=== PATIENT | female | born 1995 | race Caucasian/White ===

== ENCOUNTER 2016-09-02 17:29 | Emergency (ER) | payer MEDICAID ==
[~2016-09-02 17:29] MED LIST: DOXY10TA; DOXY10TA PO; PYRI1TAB5; UNIS25TA2 PO; ZOFR4TAB PO; ZOFR4TAB3 SL
--- NOTE | 2016-09-02 18:03 | PD ---
HPI Chief Complaint abdominal pain Date Seen: Sep 02, 2016 (Veronika Silvestre MD R2) Travel History International Travel<30 Days: No Contact w/Intl Traveler<30Days: No (Veronika Silvestre MD R2) History of Present Illness HPI Patient is a 20 year old at 18-3/7 weeks gestation who presents today with abdominal pain. The pain started yesterday afternoon, went away last night while she was sleeping, and returned this morning when she woke up. The pain is located in the RUQ and radiates down to the central lower abdomen. She describes the pain as sharp. She denies any vaginal bleeding or discharge, hematuria, dysuria, fever, chills, nausea, or vomiting. Last intercourse was 2 days [address] care [address] Dr[address] Nick Regalado. (Veronika Silvestre MD R2) History Past Medical History Medical History: Denies Significant Hx (Veronika Silvestre MD R2) Obstetric History Obstetric History (Veronika Silvestre MD R2) Past Surgical History Surgical History: No Previous Surgery (Veronika Silvestre MD R2) Family History Family History: Negative (Veronika Silvestre MD R2) Social History Alcohol Use: No Tobacco Use: No Substance Abuse: No (Veronika Silvestre MD R2) Allergies-Medications (Allergen,Severity, Reaction): Coded Allergies: Penicillin (Verified Allergy, Severe, Anaphylaxis, 08/05/16) Pistachio (Verified Allergy, Severe, anaphylaxis, 08/05/16) [place] (Verified Allergy, Severe, anaphylaxis, 08/05/16) Home Meds Active Scripts Ferrous Sulfate (Iron)325 Mg [id number] Mg PO BIDPC #60 TAB Ref 3 Take after a meal. Prov:Veronika Silvestre MD R2 09/02/16 Ondansetron Odt (Zofran Odt)4 Mg Tab4 Mg SL Q8HR PRN (Nausea/Vomiting) #15 TAB May substitute non-ODT form. Prov:Zechariah Olmedo MD 08/14/16 Doxylamine-Pyridoxine (Diclegis)10-10 Mg Tab1 Tab PO DIRECTED PRN (NAUSEA OR VOMITING) #14 TAB Prov:Lidia Regalado MD, R3 11/29/16 Reported Medications Doxylamine Succinate (Sleep) (Unisom)25 Mg Tab25 Mg PO HS PRN (INSOMNIA) 07/22/16 Pyridoxine (B6 Natural)100 Mg Tab 07/22/16 Ondansetron (Zofran)4 Mg Tab4 Mg PO Q12HR PRN (NAUSEA OR VOMITING) Ref 0 07/22/16 Doxylamine-Pyridoxine (Diclegis)10-10 Mg Tab 07/22/16 Review of Systems Except as stated in HPI: all other systems reviewed are Neg General / Constitutional: No: Fever, Chills Eyes: No: Blurred Vision, Visual changes HENT: No: Headaches Cardiovascular: No: Chest Pain or Discomfort Respiratory: No: Short of Breath Gastrointestinal: Abdominal Pain, No: Nausea, Vomiting Genitourinary: No: Dysuria, Hematuria, Discharge, Vaginal Bleeding Musculoskeletal: No: Edema Skin: No Rash Psychiatric: No: Substance Abuse (Veronika Silvestre MD R2) Physical Exam Narrative GENERAL: Well-nourished, well-developed patient. SKIN: Warm and dry. HEAD: Normocephalic and atraumatic. EYES: No scleral icterus. No injection or drainage. ENT: No nasal drainage noted. Mucous membranes pink. Airway patent. NECK: Supple, trachea midline. No JVD. CARDIOVASCULAR: Regular rate and rhythm without murmurs, gallops, or rubs. RESPIRATORY: Breath sounds equal bilaterally. No accessory muscle use. ABDOMEN/GI: Abdomen soft, tender to palpation in RUQ, positive Brower's sign, bowel sounds present, no rebound, no guarding Gravid to 18 weeks size Fundal Height: 18 GENITOURINARY: External Genitalia: intact and normal in appearance FHT's: 150's EXTREMITIES: No cyanosis or edema. BACK: Nontender without obvious deformity. No CVA tenderness. NEUROLOGICAL: Awake and alert. Motor and sensory grossly within normal limits. Normal speech. (Veronika Silvestre MD R2) Data Data Vital Signs Reviewed: Yes Orders Vital Signs (Adult) .ON ADMISSION (09/02/16 17:55) ^ Labor Status (09/02/16 17:55) Urinalysis - C+S If Indicated (09/02/16 17:55) ^ Hydration (09/02/16 17:55) (Veronika Silvestre MD R2) [facility] Medical Record Reviewed: Yes Narrative Course / MDM Patient is a 20 year old at 18-3/7 weeks gestation. 1. Abdominal pain- ddx includes UTI vs cholelithiasis vs cholecystitis vs round ligament pain Obtain UA, CBC, CMP dw Dr. Lopez Addendum: UA wnl CBC significant for H/H 10.6/30.7, no leukocytosis. Will start on Ferrous Sulfate 325mg PO BID. CMP wnl Discharge home. Follow up with Dr. Regalado at the [facility]. (Veronika Silvestre MD R2) Diagnosis Diagnosis: Primary Impression: Round ligament pain Additional Impression: Qualified Code: Z3A.18 - 18 weeks gestation of Disposition: DISCHARGE HOME Condition: Stable Scripts Ferrous Sulfate (Iron)325 Mg [id number] Mg PO BIDPC #60 TAB Ref 3 Take after a meal. Prov:Veronika Silvestre MD R2 09/02/16 Attestation Patient seen and examined with the resident under direct supervision, I agree with the assessment and plan. (Clif Lopez MD) Veronika Silvestre MD R2 Sep 02, 2016 18:03 Clif Lopze MD Sep 02, 2016 22:51
[2016-09-02 18:26] LABS: BLOOD, URINE NEG (NEG); COMMENT (UR) CULT NOT INDICATED; CULTURE IF INDICATED CULT NOT INDICATED; GLUCOSE,URINE NEG (NEG); KETONE, URINE NEG (NEG); MUCUS URINE FEW /lpf (OCC); NITRITE,URINE NEG (NEG); SQUAMOUS EPITHELIAL CELL URINE <1 /hpf (0-5); URINE COLOR YELLOW (YELLW/STRAW)
[2016-09-02 18:31] LABS: HEMATOCRIT 30.7 % (35.0-46.0); MEAN CELL VOLUME 87.2 FL (80.0-100.0); MEAN CORPUSCULAR HEMOGLOBIN 30.1 PG (27.0-34.0); MEAN CORPUSCULAR HGB CONC 34.5 % (32.0-36.0); PLATELET COUNT 240 TH/MM3 (150-450); RED BLOOD COUNT 3.52 MIL/MM3 (4.00-5.30); RED CELL DISTRIBUTION WIDTH 13.1 % (11.6-17.2); REVIEW FLAG FINAL; WHITE BLOOD COUNT 9.2 TH/MM3 (4.0-11.0)
[2016-09-02] MEDS ORDERED: FERR1TAB36 PO (18:46)
[2016-09-02 18:47] LABS: ALT (GPT) 14 U/L (10-53); ANION GAP 7 MEQ/L (5-15); AST (GOT) 7 U/L (15-37); BICARBONATE 26.5 MEQ/L (21.0-32.0); BLOOD UREA NITROGEN 6 MG/DL (7-18); CHLORIDE 105 MEQ/L (98-107); GLOMERULAR FILTRATION RATE 159 ML/MIN (>89); POTASSIUM 3.9 MEQ/L (3.5-5.1); SODIUM (NA) 138 MEQ/L (136-145)
[2016-09-02 18:50] LABS: ALKALINE PHOSPHATASE 57 U/L (45-117); TOTAL BILIRUBIN ADULT 0.1 MG/DL (0.2-1.0)
[2016-10-01] MEDS ORDERED: COMPCHW PO (16:40)
[2016-10-14] MEDS ORDERED: FERR1TAB36 PO (10:50)
[2016-10-14] MEDS ORDERED: ZOFR4TAB3 SL (10:51)
== END 2016-09-02 19:29 | disposition home or self-care (01) ==
LOC: HOBED 17:29
DX: O26.892 Other specified pregnancy related conditions, second trimester (principal); R10.2 Pelvic and perineal pain; Z3A.18 18 weeks gestation of pregnancy
CPT/HCPCS: 36415; 80053; 81001; 85027

== ENCOUNTER → 2016-09-04 | Outpatient (CLI) | payer MEDICAID ==
[~2016-09-04] MED LIST changes: +COMPCHW PO; +FERR1TAB36 PO
== END ==
LOC: HPND 08:06
PROVIDERS: ATTEND Family Medicine
DX: O44.42 Low lying placenta NOS or without hemorrhage, second trimester (principal); Z36 Encounter for antenatal screening of mother; Z3A.14 14 weeks gestation of pregnancy
CPT/HCPCS: 76805; 76817

== ENCOUNTER 2016-09-16 12:47 | Emergency (ER) | payer MEDICAID ==
[~2016-09-16 12:47] MED LIST changes: -COMPCHW PO; -DOXY10TA; -DOXY10TA PO; -PYRI1TAB5; -UNIS25TA2 PO; -ZOFR4TAB PO
--- NOTE | 2016-09-16 13:21 | PD ---
HPI Chief Complaint decreased movement Date Seen: Sep 16, 2016 Time Seen: 13:05 (Zane Diallo MD R2) Travel History International Travel<30 Days: No Contact w/Intl Traveler<30Days: No (Zane Diallo MD R2) History of Present Illness HPI 20 year old G1 at 20/3 weeks gestation with MELA of 01/31/17. She is reporting for decreased movement. She has felt movements since late July. Starting yesterday and into today she has decreased movements. She has back pain. No headache, blurry vision, chest pain, shortness of breath, abdominal pain, nausea, vomiting, diarrhea, dysuria, or calf tenderness. (Zane Diallo MD R2) History Past Medical History Narrative Medical None (Zane Diallo MD) Obstetric History Obstetric History G1 at 20/3 weeks gestation Hyperemesis in beginning, resolved Placenta low lying No other complications (Zane Diallo MD R2) Past Surgical History Narrative Surgical None (Zane Diallo MD) Family History Narrative Family History Father with hypertension (Zane Diallo MD) Social History Narrative Social History No smoking, drinking, drug use (Zane Diallo MD R2) Allergies-Medications (Allergen,Severity, Reaction): Coded Allergies: Penicillin (Verified Allergy, Severe, Anaphylaxis, 09/04/16) Pistachio (Verified Allergy, Severe, anaphylaxis, 09/04/16) [place] (Verified Allergy, Severe, anaphylaxis, 09/04/16) Home Meds Active Scripts Ferrous Sulfate (Iron)325 Mg [id number] Mg PO BIDPC #60 TAB Ref 3 Take after a meal. Prov:Veronika Silvestre MD R2 09/02/16 Ondansetron Odt (Zofran Odt)4 Mg Tab4 Mg SL Q8HR PRN (Nausea/Vomiting) #15 TAB May substitute non-ODT form. Prov:Zechariah Olmedo MD 08/14/16 Review of Systems General / Constitutional: Weight Gain, No: Fever, Weight Loss, Chills Eyes: No: Diploplia, Blurred Vision, Visual changes, Pain HENT: No: Headaches, Vertigo, Lightheadedness Cardiovascular: No: Irregular Rhythm, Chest Pain or Discomfort, Palpitations, Tachycardia, Syncope Respiratory: No: Cough, Short of Breath, Wheezing Gastrointestinal: No: Nausea, Vomiting, Diarrhea, Abdominal Pain Genitourinary: No: Urgency, Frequency, Dysuria Musculoskeletal: No: Limited ROM, Weakness, Cramping, Edema Skin: No Rash Neurologic: No: Weakness, Dizziness, Syncope, Focal Abnormalities, Coordination Problem, Headache, Slurred Speech Psychiatric: No: Anxiety, Depression, Suicidal Ideations, Disorder of Thought, Mood Disorder Endocrine: No: Heat Intolerance, Cold Intolerance, Polydipsia, Polyuria Hematologic/Lymphatic: No Easy Bruising, No Lymph Node Enlargement (Zane Diallo MD R2) Physical Exam Narrative GENERAL: Well-nourished, well-developed patient. SKIN: Warm and dry. HEAD: Normocephalic and atraumatic. EYES: No scleral icterus. No injection or drainage. ENT: No nasal drainage noted. Mucous membranes pink. Airway patent. NECK: Supple, trachea midline. No JVD. CARDIOVASCULAR: Regular rate and rhythm without murmurs, gallops, or rubs. RESPIRATORY: Breath sounds equal bilaterally. No accessory muscle use. BREASTS: Bilateral exam showed no masses , no retractions, no nipple discharge. ABDOMEN/GI: Abdomen soft, non-tender, bowel sounds present, no rebound, no guarding Gravid to 20 weeks size GENITOURINARY: External Genitalia: intact and normal in appearance FHT's: 150's EXTREMITIES: No cyanosis or edema. BACK: Nontender without obvious deformity. No CVA tenderness. NEUROLOGICAL: Awake and alert. Motor and sensory grossly within normal limits. Five out of 5 muscle strength in all muscle groups. Normal speech. (Zane Diallo MD R2) Data Data Vital Signs Reviewed: Yes (Zane Diallo MD R2) Vital Signs Reviewed: Yes (Ayanna Rowley MD) [facility] Medical Record Reviewed: Yes Interpretation(s) 20 year old G1 at 20/3 weeks gestation - FHT's measured, 150's - Reassurance of mother due to early gestational age - Follow up with OB in the clinic, appt in [address] Nick Regalado - Encourage good hydration - Continue routine care (Zane Diallo MD R2) Attending Attestation Patient seen and examined. Case reviewed and discussed with the resident team. H&P reviewed and corroborated w/ pt and fiance' at bedside. No further concern, pt now aware of baby movement. Anticipatory guidance given. Agree with plan of care as discussed with me and documented in the resident note. (Ayanna Rowley MD) Diagnosis Diagnosis: Primary Impression: Decreased movement affecting management of mother, antepartum Disposition: 01 DISCHARGE HOME Condition: Good Zane Diallo MD R2 Sep 16, 2016 13:21 Ayanna Rowley MD Sep 16, 2016 14:15
[2016-10-01] MEDS ORDERED: COMPCHW PO (16:40)
[2016-10-14] MEDS ORDERED: FERR1TAB36 PO (10:50)
[2016-10-14] MEDS ORDERED: ZOFR4TAB3 SL (10:51)
== END 2016-09-16 14:42 | disposition home or self-care (01) ==
LOC: HOBED 12:47
DX: O36.8120 Decreased fetal movements, second trimester, not applicable or unspecified (principal); M54.9 Dorsalgia, unspecified; Z3A.20 20 weeks gestation of pregnancy
CPT/HCPCS: 99283

== ENCOUNTER 2016-09-21 18:33 | Emergency (ER) | payer MEDICAID ==
[2016-09-21] MEDS ORDERED: LACTATED RINGER'S 1000 ML INJ 1,000 ML IV SCH (19:43)
[2016-09-21] MEDS ORDERED: ONDANSETRON ODT 4 MG TAB PO PRN (19:45)
[2016-09-21] MEDS ORDERED: ONDANSETRON HCL 4 MG/2 ML VIAL IV PUSH ONE (19:45)
--- NOTE | 2016-09-21 20:06 | PD ---
HPI Travel History International Travel<30 Days: No Contact w/Intl Traveler<30Days: No Known Affected Area: No (Silvia Regalado MD R1) History of Present Illness HPI Patient is a 20 year old at 21 and 1/7 weeks gestation by LMP 04/26/16, EDC , consistent with second trimester ultrasound, who presents to the OB ED with nausea and vomiting. She began throwing up this morning and has not been able to keep anything down and cleaning fluids today. She has vomited >8 times today. She had Taco Garcia 2 days ago, with one episode of vomiting and multiple episodes of diarrhea that day, which resolved. She was able to eat Glades's yesterday her symptoms. However, she has been unable to tolerate potatoes and water today (potatoes normally calm her stomach). She denies leakage of fluid, vaginal bleeding, and contractions. She feels baby moving regularly. She denies GALLEGOS/fever/sick contacts/SOB/calf pain/dizziness/seeing spots. OB care is with Dr. Lidia Regalado at the [facility] [place] 09/04/16. This she has had significant nausea and vomiting, starting in the first trimester. She has been given Zofran and Diclegis this for symptom control which have both helped. Nausea ceased 1.5 weeks into the second trimester, and has not been a problem up until this week with symptoms as document above. No documented infections this . US on 09/04/16 showing anterior grade 1 low-lying placenta measuring 13 mm from internal cervical os. Repeat US scheduled for 10/08/16 to reevaluate placenta. No flu shot this year. (Silvia Regalado MD R1) History Past Medical History Narrative Medical Hyperemesis this Has tried Zofran and Diclegis, both worked well (Silvia Regalado MD R1) Obstetric History Obstetric History (Silvia Regalado MD R1) Allergies-Medications (Allergen,Severity, Reaction): Coded Allergies: Penicillin (Verified Allergy, Severe, Anaphylaxis, 09/04/16) Pistachio (Verified Allergy, Severe, anaphylaxis, 09/04/16) [place] (Verified Allergy, Severe, anaphylaxis, 09/04/16) Home Meds Active Scripts Ondansetron Odt (Zofran Odt)4 Mg Tab4 Mg SL Q8HR PRN (Nausea/Vomiting) #15 TAB May substitute non-ODT form. Prov:Avinash De León MD R2 09/21/16 Ferrous Sulfate (Iron)325 Mg [id number] Mg PO BIDPC #60 TAB Ref 3 Take after a meal. Prov:Veronika Silvestre MD R2 09/02/16 Discontinued Scripts Ondansetron Odt (Zofran Odt)4 Mg Tab4 Mg SL Q8HR PRN (Nausea/Vomiting) #15 TAB May substitute non-ODT form. Prov:Zechariah Olmedo MD 08/14/16 Review of Systems Except as stated in HPI: all other systems reviewed are Neg (Silvia Regalado MD R1) Physical Exam Narrative GENERAL: Well-nourished, well-developed patient, looks tired. SKIN: Warm and dry. HEAD: Normocephalic and atraumatic. EYES: No scleral icterus. No injection or drainage. ENT: No nasal drainage noted. Mucous membranes pink and moist. Airway patent. NECK: Supple, trachea midline. No JVD. CARDIOVASCULAR: Regular rate and rhythm without murmurs, gallops, or rubs. RESPIRATORY: Breath sounds equal bilaterally. No accessory muscle use. ABDOMEN/GI: Abdomen soft, non-tender, bowel sounds present, no rebound, no guarding Gravid to 20 weeks size GENITOURINARY: deferred FHR: 135 EXTREMITIES: No cyanosis. 1+ edema to ankles. BACK: Nontender without obvious deformity. No CVA tenderness. NEUROLOGICAL: Awake and alert. Motor and sensory grossly within normal limits. Five out of 5 muscle strength in all muscle groups. Normal speech. (Silvia Regalado MD R1) Data Data Vital Signs Reviewed: Yes (98.2F, HR 97, RR 16, 117/54) (Silvia Regalado MD R1) MDM Medical Record Reviewed: Yes Narrative Course / MDM 20-year-old at 21 and 1/7 weeks gestation and history of hyperemesis gravidarum who presents to the OB ED for significant nausea or vomiting today. Patient of Dr. Nick Regalado at [facility]. 1. Intrauterine Second trimester heart rate 135 No contractions on toco 2. Nausea/Vomiting History of hyperemesis gravidarum this Possibly related to gastroenteritis from Taco Garcia or Glades's, resulting in dehydration CBC, CMP, TSH, magnesium ordered to rule out other causes, electrolyte abnormalities IV fluid bolus of LR started, we'll continue repletion with IV fluids @ 300cc/hr We'll give IV Zofran 4 mg IV x 1 Give Zofran ODT 4mg PRN for continued N/V DW Dr. Lopez SDW Dr. Avinash De León (Silvia Regalado MD R1) Plan Patient improved significantly on Zofran given in OB ED. Reviewed reassuring CBC, CMP, TSH, and Mg with patient -Hgb 10.6; discussed with patient that she can follow-up with Dr. Regalado and later supplement with Iron with <10.5 or other threshold established by Dr. Regalado Will plan to discharge patient home with repeat prescription for Zofran ODT (PRN ) Patient will follow-up with Dr. Regalado Discussed with Dr. Silvia Regalado and Dr. Lopez (Avinash De León MD R2) Diagnosis Diagnosis: Primary Impression: Hyperemesis gravidarum Disposition: 01 DISCHARGE HOME Condition: Stable Scripts Ondansetron Odt (Zofran Odt)4 Mg Tab4 Mg SL Q8HR PRN (Nausea/Vomiting) #15 TAB May substitute non-ODT form. Prov:Avinash De León MD R2 09/21/16 Referrals: Lidia Regalado MD, R3 1 week Patient Instructions: Acute Nausea and Vomiting (GEN), General Instructions Attestation Patient seen and examined with the resident under direct supervision, I agree with the assessment and plan. (Clif Lopez MD) Silvia Regalado MD R1 Sep 21, 2016 20:05 Avinash De León MD R2 Sep 21, 2016 21:06 Clif Lopez MD Sep 22, 2016 02:16
[2016-09-21 20:09] LABS: AUTOMATED NEUTROPHIL # 8.6 TH/MM3 (1.8-7.7); BASOPHIL % 0.3 % (0.0-2.0); EOSINOPHIL % 0.3 % (0.0-4.0); HEMATOCRIT 30.3 % (35.0-46.0); HEMO FLAGS DIFF FINAL; LYMPH % 13.3 % (9.0-44.0); LYMPHOCYTE # 1.4 TH/MM3 (1.0-4.8); MEAN CELL VOLUME 87.4 FL (80.0-100.0); MEAN CORPUSCULAR HEMOGLOBIN 30.5 PG (27.0-34.0); MEAN CORPUSCULAR HGB CONC 34.9 % (32.0-36.0); MONO % 6.7 % (0.0-8.0); NEUT % 79.4 % (16.0-70.0); PLATELET COUNT 296 TH/MM3 (150-450); RED BLOOD COUNT 3.47 MIL/MM3 (4.00-5.30); WHITE BLOOD COUNT 10.8 TH/MM3 (4.0-11.0)
[2016-09-21 20:32] LABS: ANION GAP 9 MEQ/L (5-15); AST (GOT) 7 U/L (15-37); BICARBONATE 23.7 MEQ/L (21.0-32.0); BLOOD UREA NITROGEN 6 MG/DL (7-18); CHLORIDE 104 MEQ/L (98-107); GLOMERULAR FILTRATION RATE 163 ML/MIN (>89); POTASSIUM 3.8 MEQ/L (3.5-5.1); SODIUM (NA) 137 MEQ/L (136-145)
[2016-09-21 20:42] LABS: ALKALINE PHOSPHATASE 67 U/L (45-117); ALT (GPT) 10 U/L (10-53); TOTAL BILIRUBIN ADULT 0.2 MG/DL (0.2-1.0)
[2016-09-21] MEDS ORDERED: ZOFR4TAB3 SL (21:05)
[2016-10-01] MEDS ORDERED: COMPCHW PO (16:40)
[2016-10-14] MEDS ORDERED: FERR1TAB36 PO (10:50)
[2016-10-14] MEDS ORDERED: ZOFR4TAB3 SL (10:51)
== END 2016-09-21 21:06 | disposition home or self-care (01) ==
LOC: HOBED 18:33
DX: O26.92 Pregnancy related conditions, unspecified, second trimester (principal); R11.2 Nausea with vomiting, unspecified; Z3A.21 21 weeks gestation of pregnancy
CPT/HCPCS: 80053; 83735; 84443; 85025; 96361; 96374; 99284; J2405; J7120

== ENCOUNTER → 2016-10-09 | Outpatient (CLI) | payer MEDICAID ==
[~2016-10-09] MED LIST changes: +COMPCHW PO
== END ==
LOC: HPND 14:27
PROVIDERS: ATTEND Family Medicine
DX: O44.40 Low lying placenta NOS or without hemorrhage, unspecified trimester (principal); Z3A.00 Weeks of gestation of pregnancy not specified
CPT/HCPCS: 76816

== ENCOUNTER 2017-06-29 11:16 | Emergency (ER) | payer MEDICAID ==
[~2017-06-29] VITALS: Ht 160 cm; Wt 64.0 kg
[2017-06-29 11:19] VITALS: BP 117/56; PULSE 92; RESP 16; TEMP 97.8; O2SAT 99
[2017-06-29] MEDS ORDERED: SODIUM CHLOR 0.9% 1000 ML INJ 1,000 ML IV SCH (11:28)
[2017-06-29] MEDS ORDERED: METOCLOPRAMIDE HCL 10 MG/2 ML VIAL IV PUSH ONE (11:30)
--- NOTE | 2017-06-29 11:44 | PD ---
HPI Chief Complaint: GI Complaint Time Seen by Provider: 11:28 Travel History International Travel<30 days: No Contact w/Intl Traveler<30days: No Traveled to known affect area: No History of Present Illness HPI 21-year-old female that presents to the ED for evaluation of nausea and vomited as well as . Per patient she had a syncopal episode at home. She was in the process of changing her 3 month old when she woke up on the floor. She does not know what happened. She denies any pain on the abdomen but she does state that for the past 2 days she's been having severe nausea and vomited even her medications are not helping with. She states that she has a history of hyperemesis gravidarum and has been taking Zofran, Reglan, and now she is taking diclagis with minimal relief for the past 2 days. Per patient she cannot keep anything down even water comes up. She states that currently she feels nauseous. There she was seen here initially for her baby who is she had on her hands when she passed out. Baby has been okay. She was offered to be evaluated by a physician secondary to her symptoms and does she's been evaluated. 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 Allergies to penicillin, pistachio and well-nourished. She denies any abdominal pain other than when she has the nausea and vomiting. She denies any vaginal discharge or bleeding. PFSH Past Medical History Medical History: Denies Significant Hx Asthma: Yes (CHILDHOOD) Cardiovascular Problems: Yes ("HOLE IN MY HEART A BABY") Diminished Hearing: No Respiratory: Yes (ASTHMA A CHILD) Immunizations Current: Yes Tetanus Vaccination: < 5 Years ?: LMP: ? 13-16 WEEKS AGO : 2 Para: 0 Miscarriage: 0 : 0 Past Surgical History Surgical History: No Previous Surgery Social History Alcohol Use: No Tobacco Use: No Substance Use: No Allergies-Medications (Allergen,Severity, Reaction): Coded Allergies: penicillin G (Unverified Allergy, Severe, Anaphylaxis, 06/29/17) pistachio nut (Unverified Allergy, Severe, anaphylaxis, 06/29/17) walnut (Unverified Allergy, Severe, anaphylaxis, 06/29/17) Reported Meds & Prescriptions Reported Meds & Active Scripts Active Zofran Odt (Ondansetron Odt) 4 Mg Tab 4 Mg SL Q6HR PRN Completenate 29-1 mg ( Vit W/ Ferrous Fumara) 1 Chw Chw 1 Chew PO DAILY Review of Systems Except as stated in HPI: all other systems reviewed are Neg Physical Exam Narrative GENERAL: SKIN: Warm and dry. HEAD: Atraumatic. Normocephalic. EYES: Pupils equal and round 4 mms reactive to light and accomodation. No scleral icterus. No injection or drainage. ENT: No nasal bleeding or discharge. Mucous membranes pink and moist. Tongue is midline. No uvula deviation. NECK: Trachea midline. No JVD. CARDIOVASCULAR: Regular rate and rhythm. No murmurs, S3, S4. RESPIRATORY: No accessory muscle use. Clear to auscultation. Breath sounds equal bilaterally. GASTROINTESTINAL: Abdomen soft, non-tender, nondistended. Hepatic and splenic margins not palpable. MUSCULOSKELETAL: Extremities without clubbing, cyanosis, or edema. No obvious deformities. Full range of motion of the upper and lower extremities bilaterally. 2+ pulses bilaterally. NEUROLOGICAL: Awake and alert. No obvious cranial nerve deficits. Motor grossly within normal limits. Five out of 5 muscle strength in the arms and legs. Normal speech. PSYCHIATRIC: Appropriate mood and affect; insight and judgment normal. Data Data Last Documented VS Vital Signs Date Time Temp Pulse Resp B/P (MAP) Pulse Ox O2 Delivery O2 Flow Rate FiO2 06/29/17 11:51 99 06/29/17 11:19 97.8 92 16 117/56 (76) Orders Orders Complete Blood Count With Diff (06/29/17 11:28) Comprehensive Metabolic Panel (06/29/17 11:28) Lipase (06/29/17 11:28) Urinalysis - C+S If Indicated (06/29/17 11:28) Iv Access Insert/Monitor (06/29/17 11:28) Ecg Monitoring (06/29/17 11:28) Oximetry (06/29/17 11:28) Sodium Chlor 0.9% 1000 Ml Inj (Ns 1000 M (06/29/17 11:28) Electrocardiogram (06/29/17 11:28) Metoclopramide Inj (Reglan Inj) (06/29/17 11:30) Beta Hcg (Quant/Titer) (06/29/17 11:30) Diphenhydramine Inj (Benadryl Inj) (06/29/17 12:00) Ed Poc Ultrasound (06/29/17 ) Labs Laboratory Tests Test 06/29/17 11:30 White Blood Count 12.7 TH/MM3 Red Blood Count 4.51 MIL/MM3 Hemoglobin 11.9 GM/DL Hematocrit 36.3 % Mean Corpuscular Volume 80.6 FL Mean Corpuscular Hemoglobin 26.5 PG Mean Corpuscular Hemoglobin Concent 32.8 % Red Cell Distribution Width 16.9 % Platelet Count 339 TH/MM3 Mean Platelet Volume 8.1 FL Neutrophils (%) (Auto) 81.7 % Lymphocytes (%) (Auto) 13.4 % Monocytes (%) (Auto) 4.5 % Eosinophils (%) (Auto) 0.2 % Basophils (%) (Auto) 0.2 % Neutrophils # (Auto) 10.4 TH/MM3 Lymphocytes # (Auto) 1.7 TH/MM3 Monocytes # (Auto) 0.6 TH/MM3 Eosinophils # (Auto) 0.0 TH/MM3 Basophils # (Auto) 0.0 TH/MM3 CBC Comment DIFF FINAL Differential Comment Blood Urea Nitrogen 6 MG/DL Creatinine 0.53 MG/DL Random Glucose 75 MG/DL Total Protein 7.8 GM/DL Albumin 3.5 GM/DL Calcium Level 9.0 MG/DL Alkaline Phosphatase 70 U/L Aspartate Amino Transf (AST/SGOT) 12 U/L Alanine Aminotransferase (ALT/SGPT) 15 U/L Total Bilirubin 0.4 MG/DL Sodium Level 136 MEQ/L Potassium Level 3.6 MEQ/L Chloride Level 104 MEQ/L Carbon Dioxide Level 20.9 MEQ/L Anion Gap 11 MEQ/L Estimat Glomerular Filtration Rate 144 ML/MIN Lipase 57 U/L [facility] Medical Decision Making Medical Screen Exam Complete: Yes Emergency Medical Condition: Yes Medical Record Reviewed: Yes Interpretation(s) EKG shows sinus rhythm with no sign of acute ischemia or arrhythmia. Read by me and attending. CBC & BMP Diagram 06/29/17 11:30 Total Protein 7.8, Albumin 3.5, Calcium Level 9.0, Alkaline Phosphatase 70, Aspartate Amino Transf (AST/SGOT) 12 L, Alanine Aminotransferase (ALT/SGPT) 15, Total Bilirubin 0.4 Differential Diagnosis Hyperemesis gravidarum versus syncope versus dehydration versus fall during versus UTI versus failed outpatient treatment versus nausea and vomiting Narrative Course 21-year-old female that presents to the ED for evaluation of syncope. Patient was properly examined and was found to have signs and symptoms very consistent what appears to be hyperemesis gravidarum with syncope. Labs were ordered. EKG was ordered. This time patient does not appear to have any neurological deficits. This likely appears to be related to dehydration. Ultrasound was ordered. IV fluids were ordered. Patient was given IV Reglan here in the ED. Labs and EKG showed no sign of acute disease. Patient feels better. Syncope likely vasovagal secondary to dehydration. Patient has not been vomiting since been here. Patient agrees to follow-up outpatient with [employer] tomorrow. She looks great. My attending Dr. London perform an ultrasound at bedside and was reassuring. No sign of demise or injury. Patient requested Zofran. She was told of the possibility of interaction with fetus but she states that she's taken it before and she feels that he might help her more. She understands reasons to come back. Follow-up with PCP. See ED if worsening symptoms. Diagnosis Primary Impression: Hyperemesis gravidarum Patient Instructions: General Instructions Additional Instructions: Take medication as prescribed. Follow with [employer] [facility]. You can also take Benadryl 25 mg every 6 hours as needed for nausea. Drink plenty of fluids. See ED worsening symptoms. Med/Other Pt SpecificInfo: Prescription(s) given Scripts Ondansetron Odt (Zofran Odt) 4 Mg Tab 4 MG SL Q6HR Y for Nausea/Vomiting, #30 TAB 0 Refills Prov: Crispin London MD 06/29/17 Disposition: 01 DISCHARGE HOME Condition: Stable José Ferreira Jun 29, 2017 11:44
[2017-06-29 11:51] VITALS: O2SAT 99
[2017-06-29 12:00] LABS: AUTOMATED NEUTROPHIL # 10.4 TH/MM3 (1.8-7.7); BASOPHIL % 0.2 % (0.0-2.0); EOSINOPHIL % 0.2 % (0.0-4.0); HEMATOCRIT 36.3 % (35.0-46.0); HEMO FLAGS DIFF FINAL; LYMPH % 13.4 % (9.0-44.0); LYMPHOCYTE # 1.7 TH/MM3 (1.0-4.8); MEAN CELL VOLUME 80.6 FL (80.0-100.0); MEAN CORPUSCULAR HEMOGLOBIN 26.5 PG (27.0-34.0); MEAN CORPUSCULAR HGB CONC 32.8 % (32.0-36.0); MONO % 4.5 % (0.0-8.0); NEUT % 81.7 % (16.0-70.0); PLATELET COUNT 339 TH/MM3 (150-450); RED BLOOD COUNT 4.51 MIL/MM3 (4.00-5.30); RED CELL DISTRIBUTION WIDTH 16.9 % (11.6-17.2); WHITE BLOOD COUNT 12.7 TH/MM3 (4.0-11.0)
[2017-06-29] MEDS ORDERED: diphenhydrAMINE HCL 50 MG/ML VIAL IV PUSH ONE (12:00)
[2017-06-29 12:24] LABS: ALT (GPT) 15 U/L (10-53); ANION GAP 11 MEQ/L (5-15); AST (GOT) 12 U/L (15-37); BICARBONATE 20.9 MEQ/L (21.0-32.0); BLOOD UREA NITROGEN 6 MG/DL (7-18); CHLORIDE 104 MEQ/L (98-107); GLOMERULAR FILTRATION RATE 144 ML/MIN (>89); POTASSIUM 3.6 MEQ/L (3.5-5.1); SODIUM (NA) 136 MEQ/L (136-145)
[2017-06-29 12:26] LABS: ALKALINE PHOSPHATASE 70 U/L (45-117); TOTAL BILIRUBIN ADULT 0.4 MG/DL (0.2-1.0)
--- NOTE | 2017-06-29 14:01 | PD ---
Physical Exam Date Seen by Provider: Jun 29, 2017 Time Seen by Provider: 13:59 Narrative 21-year-old female was seen by my PA for a syncopal episode. Patient is about 13 weeks . She has not had an OB ultrasound yet. Blood test results are done and they are within acceptable limits. I performed a bedside limited OB ultrasound which seems to be within normal limits. Please refer to my procedure note. Patient will be discharged home. She said she has an appointment with her OB tomorrow. Ralph will send her home with some Zofran prescription since she still nauseous. Data Data Last Documented VS Orders Orders Complete Blood Count With Diff (06/29/17 11:28) Comprehensive Metabolic Panel (06/29/17 11:28) Lipase (06/29/17 11:28) Urinalysis - C+S If Indicated (06/29/17 11:28) Iv Access Insert/Monitor (06/29/17 11:28) Ecg Monitoring (06/29/17 11:28) Oximetry (06/29/17 11:28) Sodium Chlor 0.9% 1000 Ml Inj (Ns 1000 M (06/29/17 11:28) Electrocardiogram (06/29/17 11:28) Metoclopramide Inj (Reglan Inj) (06/29/17 11:30) Beta Hcg (Quant/Titer) (06/29/17 11:30) Diphenhydramine Inj (Benadryl Inj) (06/29/17 12:00) Ed Poc Ultrasound (06/29/17 ) Ed Discharge Order (06/29/17 14:09) Labs Laboratory Tests Test 06/29/17 11:30 06/29/17 14:00 White Blood Count 12.7 TH/MM3 Red Blood Count 4.51 MIL/MM3 Hemoglobin 11.9 GM/DL Hematocrit 36.3 % Mean Corpuscular Volume 80.6 FL Mean Corpuscular Hemoglobin 26.5 PG Mean Corpuscular Hemoglobin Concent 32.8 % Red Cell Distribution Width 16.9 % Platelet Count 339 TH/MM3 Mean Platelet Volume 8.1 FL Neutrophils (%) (Auto) 81.7 % Lymphocytes (%) (Auto) 13.4 % Monocytes (%) (Auto) 4.5 % Eosinophils (%) (Auto) 0.2 % Basophils (%) (Auto) 0.2 % Neutrophils # (Auto) 10.4 TH/MM3 Lymphocytes # (Auto) 1.7 TH/MM3 Monocytes # (Auto) 0.6 TH/MM3 Eosinophils # (Auto) 0.0 TH/MM3 Basophils # (Auto) 0.0 TH/MM3 CBC Comment DIFF FINAL Differential Comment Blood Urea Nitrogen 6 MG/DL Creatinine 0.53 MG/DL Random Glucose 75 MG/DL Total Protein 7.8 GM/DL Albumin 3.5 GM/DL Calcium Level 9.0 MG/DL Alkaline Phosphatase 70 U/L Aspartate Amino Transf (AST/SGOT) 12 U/L Alanine Aminotransferase (ALT/SGPT) 15 U/L Total Bilirubin 0.4 MG/DL Sodium Level 136 MEQ/L Potassium Level 3.6 MEQ/L Chloride Level 104 MEQ/L Carbon Dioxide Level 20.9 MEQ/L Anion Gap 11 MEQ/L Estimat Glomerular Filtration Rate 144 ML/MIN Lipase 57 U/L Human Chorionic Gonadotropin, Quant 98487 MIU/ML Urine Color LIGHT-YELLOW Urine Turbidity CLEAR Urine pH 7.0 Urine Specific [place] 1.009 Urine Protein NEG mg/dL Urine Glucose (UA) NEG mg/dL Urine Ketones 80 mg/dL Urine Occult Blood NEG Urine Nitrite NEG Urine Bilirubin NEG Urine Urobilinogen LESS THAN 2.0 MG/DL Urine Leukocyte Esterase NEG Urine RBC LESS THAN 1 /hpf Urine Squamous Epithelial Cells 2 /hpf Urine Bacteria RARE /hpf Urine Mucus FEW /lpf Microscopic Urinalysis Comment CULT NOT INDICATED MDM Supervised Visit with TG: Yes Procedures Procedure Narrative Emergency Department Pelvic ultrasound was performed with patient consent. The curvilinear probe was used in the transverse and sagittal views within the suprapubic region revealing single, live intrauterine . heart rate was 146 bpm. See this measures 14 weeks 2 days by [employer]. Scripts Ondansetron Odt (Zofran Odt) 4 Mg Tab 4 MG SL Q6HR Y for Nausea/Vomiting, #30 TAB 0 Refills Prov: Crispin London MD 06/29/17 Crispin London MD Jun 29, 2017 14:01
[2017-06-29] MEDS ORDERED: ZOFR4TAB3 SL (14:05)
[2017-06-29 14:17] LABS: BACTERIA, URINE RARE /hpf; BLOOD, URINE NEG (NEG); COMMENT (UR) CULT NOT INDICATED; CULTURE IF INDICATED CULT NOT INDICATED; GLUCOSE,URINE NEG (NEG); KETONE, URINE 80 mg/dL (NEG); MUCUS URINE FEW /lpf (OCC); NITRITE,URINE NEG (NEG); SQUAMOUS EPITHELIAL CELL URINE 2 /hpf (0-5); URINE COLOR LIGHT-YELLOW (YELLW/STRAW)
[2017-06-30 00:50] LABS: BETA HCG QUANT 65686 MIU/ML (0-5)
--- NOTE | 2017-06-30 18:33 | EKG ---
Date Performed: 06/29/2017 Time Performed: 12:10:58 PTAGE: 21 years EKG: Sinus rhythm POSSIBLE RIGHT VENTRICULAR CONDUCTION DELAY PROLONGED QT INTERVAL ABNORMAL ECG NO PREVIOUS TRACING DOCTOR: Edith Sanchez Interpretating Date/Time 06/30/2017 18:32:29
== END 2017-06-29 14:31 | disposition home or self-care (01) ==
LOC: NEPA 11:16
DX: O21.0 Mild hyperemesis gravidarum (principal); Z3A.14 14 weeks gestation of pregnancy
CPT/HCPCS: 80053; 81001; 83690; 84702; 85025; 93005; 96361; 96374; 96375; 99285; J1200; J2765; J7030